=== PATIENT | male | born 1945 | race Caucasian/White ===

== ENCOUNTER 2016-12-03 18:34 | Emergency (ER) | payer OTHER ==
[2016-12-03 18:50] VITALS: RESP 28; TEMP 99.2
[2016-12-03] MEDS ORDERED: LIDOCAINE HCL 2% GEL TOP ONE ×2 (19:25→19:27)
[2016-12-03] MEDS ORDERED: LIDOCAINE HCL 1% MPF SOL ONE (19:32)
[2016-12-03] MEDS ORDERED: LIDOCAINE HCL 1% MDV SOL SC ONE (19:36)
[2016-12-03 20:32] VITALS: BP 126/77; PULSE 59; O2SAT 97
== END 2016-12-03 20:23 | disposition home or self-care (01) | DRG 395 ==
LOC: ED 18:34
DX: K94.29 Other complications of gastrostomy (principal)
CPT/HCPCS: 74000; 99282; 99283; J2001

== ENCOUNTER 2017-02-08 16:45 | Emergency (ER) | payer OTHER ==
[2017-02-08 17:03] VITALS: TEMP 98.6
[2017-02-08 17:30] LABS: BASOPHILS % (AUTO) 1 % (0-3); EOSINOPHILS % (AUTO) 1 % (0-9); HEMATOCRIT 45 % (39-53); MEAN CORPUSCULAR HGB CONC 33.4 gm/dl (32.0-36.0); MEAN CORPUSCULAR VOLUME 86 fL (80-100); MONOCYTES % (AUTO) 8.5 % (0-12); NEUTROPHILS % (AUTO) 75.6 % (37-80)
[2017-02-08] MEDS ORDERED: MIDAZOLAM 2 MG/2 ML SOL ONE (17:55)
[2017-02-08] MEDS ORDERED: MIDAZOLAM 2 MG/2 ML SOL IV ONE (17:55)
[2017-02-08] MEDS ORDERED: SODIUM CHLORIDE 0.9% FLUSH 10 ML SOL IV PRN (18:22)
[2017-02-08 18:32] VITALS: RESP 18
[2017-02-08 18:57] VITALS: BP 148/85; PULSE 68; O2SAT 96
== END 2017-02-08 18:55 | disposition home or self-care (01) | DRG 563 ==
LOC: ED 16:45
DX: S43.015A Anterior dislocation of left humerus, initial encounter (principal); W18.11XA Fall from or off toilet without subsequent striking against object, initial encounter
CPT/HCPCS: 23650; 36415; 73020; 73030; 85025; 85610; 85730; 96374; 99284; J2250

== ENCOUNTER 2018-09-22 12:20 | Emergency (ER) | payer OTHER ==
[2018-09-22 12:25] VITALS: RESP 20; TEMP 96.4
[2018-09-22 13:02] VITALS: BP 158/88; PULSE 57; O2SAT 98
== END 2018-09-22 13:38 | disposition home or self-care (01) | DRG 125 ==
LOC: ED 12:20
DX: S01.111A Laceration without foreign body of right eyelid and periocular area, initial encounter (principal)
CPT/HCPCS: 12011; G0168; 99283

== ENCOUNTER 2018-12-11 13:41 | Emergency (ER) | payer OTHER ==
[2018-12-11] MEDS ORDERED: LIDOCAINE HCL 1% MPF 30 SOL ONE (13:54)
[2018-12-11] MEDS ORDERED: LIDOCAINE HCL 1% MDV 50 ML SOL SC ONE (14:13)
[2018-12-11] MEDS ORDERED: TDAP VACCINE 0.5 ML SUS IM ONE ×2 (14:18→14:36)
[2018-12-11 14:22] VITALS: RESP 18; TEMP 97.7
[2018-12-11] MEDS ORDERED: BACITRACIN 500 U/GM OIN TOP ONE ×2 (15:23→15:30)
[2018-12-11 16:06] VITALS: BP 150/77; PULSE 59; O2SAT 98
== END 2018-12-11 16:30 | disposition home or self-care (01) | DRG 607 ==
LOC: ED 13:41
DX: L60.0 Ingrowing nail (principal)
CPT/HCPCS: 11730; 90471; 90715; 99283; A6232; A9270-GY; J2001

== ENCOUNTER 2019-03-29 10:04 | Day surgery (SDC) | payer OTHER ==
[~2019-03-29 10:04] MED LIST: LIDOCAINE HCL 1% MPF 30 SOL ONE; PROPOFOL 500 MG/50 ML EMU IV ONE
[2019-03-29 12:36] VITALS: O2SAT 97
[2019-03-29 12:40] VITALS: BP 171/85; PULSE 55; RESP 18; TEMP 97.2
== END 2019-03-29 13:00 | disposition home or self-care (01) | DRG 951 ==
LOC: SURG 10:04
PROVIDERS: ATTEND Surgery
DX: Z12.11 Encounter for screening for malignant neoplasm of colon (principal); K57.32 Diverticulitis of large intestine without perforation or abscess without bleeding; Z86.010 Personal history of colon polyps
CPT/HCPCS: J2001; J2704